=== PATIENT | female | born 1950 | race African-American/Black ===

== ENCOUNTER 2017-07-03 08:11 | Emergency (ER) | payer OTHER ==
[2017-07-03] MEDS ORDERED: DIPHTH,PERTUSS(ACELL),TET 0.5 ML DISP.SYRIN IM ONE (08:14)
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
[2017-07-03 08:24] VITALS: BP 163/93; PULSE 75; TEMP 98.4; BMI 71.0
== END 2017-07-03 09:03 | disposition home or self-care (01) ==
LOC: FER 08:11
PROC: 3E0234Z Introduction of Serum, Toxoid and Vaccine into Muscle, Percutaneous Approach (ICD-10-PCS; principal; 2017-07-03)
DX: S60.811A Abrasion of right wrist, initial encounter (principal); X58.XXXA Exposure to other specified factors, initial encounter; Y93.89 Activity, other specified; Y92.238 Other place in hospital as the place of occurrence of the external cause; Y99.0 Civilian activity done for income or pay
CPT/HCPCS: 90715; 99282-25